=== PATIENT | male | born 1935 | race Caucasian/White ===

== ENCOUNTER 2022-10-30 14:12 | Observation (INO) | payer MEDICARE ==
[~2022-10-30] VITALS: Ht 172.7 cm; Wt 78.3 kg
[2022-10-30 14:27] LABS: BASOPHILS 0.1 % (0-2); EOSINOPHILS 3.8 % (0-6); HEMATOCRIT 31.2 % (35.0-50.0); HEMOGLOBIN 10.4 g/dL (12.0-18.0); LYMPHOCYTES 4.5 % (24-44); MCH 31.2 (27-36); MCHC 33.5 g/dl (30-36); MCV 93.2 fl (81-99); MONOCYTES 7.9 % (0-12); NEUTROPHILS 83.7 % (39-80); PLATELET COUNT 155 K/uL (140-440); RBC 3.34 M/ul (4.3-5.7); RDW 17.5 (10.5-15.0)
[2022-10-30 14:46] LABS: ALBUMIN 3.1 g/dL (3.4-5.0); ALBUMIN/GLOBULIN RATIO 1.03 (1.1-2.4); ANION GAP 14.5 (7-21); BILIRUBIN, TOTAL 0.6 ng/dL (0.2-1.0); BUN/CREATININE RATIO 30.79 (6.0-28.6); CREATININE, SERUM 3.02 mg/dL (0.70-1.30); POTASSIUM 3.5 mmol/L (3.5-5.1); PROTEIN, TOTAL 6.1 g/dL (6.4-8.2)
--- OUTSIDE RECORDS SUMMARY | 2022-10-30 16:01 | XMS ---
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 E.Deny VISIT COUNT (12 MO.) Shaan Montelongo RichelleQuang Vega [facility] 1 CHARAN Mcdonald TOTAL 5 NOTE: Visits indicate total known visits. ED/UCC VISIT TRACKING (12 MO.) 10/30/2022 14:29 [facility] [place] TYPE: Emergency COMPLAINT: - WEAKNESS 10/07/2022 02:32 [facility] TYPE: Emergency 10/06/2022 19:32 [facility] TYPE: Emergency DIAGNOSES: - Unspecified cord compression - neck pain - Neck Problem 10/06/2022 02:27 [facility] TYPE: Emergency DIAGNOSES: - Cervicalgia - Fall on same level, unspecified, initial encounter - Other symptoms and signs involving the musculoskeletal system - Fall - Neck Pain 08/12/2022 14:53 [facility] TYPE: Emergency DIAGNOSES: - Acute cystitis without hematuria - Cerebral infarction, unspecified - Extremity Weakness - Weakness INPATIENT VISIT TRACKING (12 MO.) 10/07/2022 02:32 [facility] TYPE: Neuro Surgery DIAGNOSES: [id number]. Injury, unspecified, initial encounter [id number]. Unspecified injury at unspecified level of cervical spinal cord, initial encounter [id number]. 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 - Cerebral infarction, unspecified - Chronic kidney disease, stage 3 unspecified - Dysarthria and anarthria - Dysphagia, unspecified - Essential (primary) hypertension - Foot drop, right foot - Hemiplegia, unspecified affecting right dominant side - Hypothyroidism, unspecified - detention (current) use of insulin - Other malaise - Other reduced mobility - Other specified health status - Type 2 diabetes mellitus with diabetic polyneuropathy - Unsteadiness on feet - CVA 08/12/2022 14:53 [facility] TYPE: Inpatient DIAGNOSES: - Acute cystitis without hematuria - Cerebral infarction, unspecified [email or web address]
[2022-10-30 17:10] LABS: BILIRUBIN, URINE NEGATIVE (negative); BLOOD/HGB, URINE NEGATIVE (Negative); KETONE, URINE TRACE (Negative); LEUK ESTERASE, URINE NEGATIVE (negative); NITRITE, URINE NEGATIVE (negative)
[2022-10-30 19:05] VITALS: BP 115/44
--- NOTE | 2022-10-30 19:31 | NUR ---
RECEIVED REPORT FROM CLINICAL SUPPORT MANAGER. PATIENT TANSFERRED TO HOSPITAL BED FROM [facility]. ADMISSION COMPLETED BY SHALINI TRIPLETT. PATIENT ORIENTED TO ROOM. PATIENT DENIES ANY NEEDS. CALL LIGHT IN REACH.
--- NOTE | 2022-10-30 20:29 | NUR ---
PATIENTS ADMISSION COMPLETED. MULTANI EMPTIED AND MULTANI CARE COMPLETED. PATIENT ASSISTED TO EAT A SNACK. PATIENTS IV INFUSING PER ORDER. PATIENT DENIES ANY PAIN. PM MEDS PER ORDER. PATIENT ASSESMENT COMPLETED. RIGHT SIDED WEAKNESS FROM RECENT SURGERY. PATIENT HAS REDDENED GROIN AREA. PATIENT HAS ABRASION TO RIGHT HEEL. PATIENT HAS SCATTERED BRUISES AND SCABS. PATIENT DENIES ANY NEEDS. CALL LIGHT IN REACH.K BED ALARM ON FOR SAFETY.
--- NOTE | 2022-10-30 21:01 | NUR ---
CALL LIGHT ANSWERED. IV PUMP ALARMING, DISTAL OCCLUSION. ARM STRAIGHTENED AND PLACED ON PILLOW. IV SITE ASSESSED, IVF INFUSING WNL. pt HAS NO ADDITIONAL REQUESTS. BED ALARM ON.
--- NOTE | 2022-10-30 22:13 | NUR ---
PT STATES HE IS HAVING SOME ACID REFLUX, NIO PLACED FOR MAALOX. INTERACTIONS DISCUSSED WITH TELEPHARMACY.
--- NOTE | 2022-10-30 22:35 | NUR ---
PATIENT REPORTS HEARTBURN, PRN MEDICATION GIVEN PER ORDER. PATIENT ASSISTED TO TAKE MEDICATION AND DRINK WATER. HEEL PROTECTORS PLACED ON PATIENT. PATIENT DENIES ANY PAIN. PATIENT DENIES ANY NEEDS. BP TAKEN AND RECORDED. CALL LIGHT IN REACH.
[2022-10-30 22:39] VITALS: BP 123/56
--- NOTE | 2022-10-31 00:19 | NUR ---
PATIENT IS RESTING IN BED WITH EYES CLOSED, RR 15. CALL LIGHT IN REACH. IV INFUSING PER ORER.
[2022-10-31 02:00] VITALS: BP 132/65
[2022-10-31 05:15] VITALS: BP 130/58
[2022-10-31 05:57] LABS: BASOPHILS 0.2 % (0-2); PLATELET COUNT 142 K/uL (140-440)
[2022-10-31 05:59] LABS: EOSINOPHILS 3.4 % (0-6); HEMOGLOBIN 9.9 g/dL (12.0-18.0); LYMPHOCYTES 5.7 % (24-44); MCH 30.8 (27-36); MCHC 33.2 g/dl (30-36); MCV 92.7 fl (81-99); NEUTROPHILS 80.7 % (39-80); RBC 3.23 M/ul (4.3-5.7)
[2022-10-31 06:02] LABS: ANION GAP 12.7 (7-21); BUN/CREATININE RATIO 38.91 (6.0-28.6); CALCIUM 8.3 mg/dL (8.5-10.1); CREATININE, SERUM 2.03 mg/dL (0.70-1.30); POTASSIUM 3.7 mmol/L (3.5-5.1)
--- NOTE | 2022-10-31 06:02 | NUR ---
PATIENTS VITALS TAKEN AND RECORDED. MULTANI EMPTIED. INTAKE AND OUTPUT RECORDED. PATIENT REPOSTIONED IN BED. IV INFUSING PER ORDER. PATIENT DENIES ANY PAIN OR NEEDS. CALL LIGHT IN REACH.
--- NOTE | 2022-10-31 07:18 | NUR ---
REPORT RECEIVED FROM UZIEL LIRIANO. PT RESTING IN BED WITH EYES CLOSED. RR EVEN AND UNLABORED. PT AWAKENS WHEN UZIEL LIRIANO AND THIS RN ENTER ROOM. PT DENIES ANY NEEDS AT THIS TIME. CALL LIGHT IN REACH.
--- NOTE | 2022-10-31 08:00 | NUR ---
IN PT ROOM. BS TAKEN. PT REQ TO USE BSC. PT UP TO BSC 2 PA W FWW AND GAITBELT. PT TO CALL WHEN DONE. PT DONE. PT CLEANED. PT BACK TO BED. PT REPOS IN BED AND PUT AT A 45 DEGREE ANGLED. PT HAS NO OTHER NEEDS. CALL LIGHT WITHIN REACH
--- NOTE | 2022-10-31 08:33 | NUR ---
IN TO ADMINISTER MEDICATIONS, SEE MAR. PT TAKES PO MEDICATIONS WITH ASSISTANCE WITH NO ISSUES WITH SIPS OF WATER. DR. MONTEMAYOR IN TO ROUND ON PT. PER DR. MONTEMAYOR "TAKE MULTANI OUT." MULTANI CATHETER REMOVED. ASSESSMENT COMPLETE. LUNG SOUNDS CLEAR. BOWEL TONES ACTIVE. PT DENIES TENDERNESS WITH ABD PALPATION. PT DENIES PAIN AT THIS TIME. PT REPORTS NUMBNESS/TINGLING ALL OVER. PER PT "IT IS NORMAL." PT REQUESTING BREAKFAST TO BE CUT UP. ASSISTED PT WITH CUTTING UP MEAL. PT DENIES ANY OTHER NEEDS AT THIS TIME. CALL LIGHT IN REACH.
[2022-10-31 09:05] VITALS: BP 144/49
--- NOTE | 2022-10-31 09:05 | NUR ---
call light answered. pt req assistance w eating. pt assisted. pt tolerated finger foods well. pt pillow removed behind head per pt request. i ask pt if he needs anything and pt stated " why do you keep asking me if i need anything, i am just trying to swallow my food". pt has no needs at this time call light within reach
--- NOTE | 2022-10-31 11:32 | NUR ---
IN WITH SIMON HARDWICK. PT REPORTING TOILETING NEEDS. 2PA WITH FWW AND GAITBELT. C-COLLAR PLACED. PT ASSISTED FROM BED TO BSC. VOID NOTED. PT REQUESTING TO SIT IN RECLINER. 2PA WITH FWW AND GAITBELT FROM BSC TO RECLINER. PILLOWS PLACED BEHIND HEAD. C-COLLAR REMOVED. BLE ELEVATED IN RECLINER. IV INFUSING WNL. PT DENIES ANY OTHER NEEDS FROM THIS RN AT THIS TIME. SIMON HARDWICK STILL IN ROOM. CALL LIGHT IN REACH.
--- NOTE | 2022-10-31 11:52 | NUR ---
IN TO ANSWER CALL LIGHT. IV PUMP ALARMING, RESOLVED. NEW BAG OF FLUIDS STARTED, SEE MAR. PT REQUESTING HEEL PROTECTOR UNDER RIGHT HEEL. HEEL PROTECTOR PLACED. PT DENIES ANY OTHER NEEDS AT THIS TIME. CALL LIGHT IN REACH.
[2022-10-31 13:40] VITALS: BP 135/52
--- NOTE | 2022-10-31 15:00 | NUR ---
PT SITTING UP IN BED WITH EYES CLOSED. DID NOT ROUSE TO MY KNOCK. LEFT GUIDEPOST AND CONTACT CARD. PRAYED SILENTLY.
--- NOTE | 2022-10-31 15:27 | NUR ---
IN TO ADMINISTER MEDICAITON, SEE MAR. PT TAKES PO MEDICAITON WITH SIP OF WATER WITH NO ISSUES. ASSESSMENT COMPLETE. LUNG SOUNDS CLEAR. BOWEL TONES ACTIVE. PT DENIES PAIN AT THIS TIME. PT UP IN RECLINER. PT DENIES ANY NEEDS AT THIS TIME. CALL LIGHT IN REACH.
--- NOTE | 2022-10-31 15:56 | NUR ---
THIS RN AND SIMON HARDWICK IN TO GET PT READY TO LEAVE. PT REPORTING TOILETING NEEDS. 2PA WITH FWW AND GAIT BELT FROM RECLINER TO BSC. IV REMOVED, SEE VASCULAR ACCESS. PT REQUESTING A MINUTE. PT EDUCATED TO USE CALL LIGHT WHEN READY. PT VERBALIZES UNDERSTANDING.
--- NOTE | 2022-10-31 16:05 | NUR ---
IN TO ANSWER CALL LIGHT. SIMON HARDWICK IN TO ASSIST. PT FINISHED WITH BSC. 2PA WITH FWW AND GAIT BELT FROM BSC TO WHEELCHAIR. VOID NOTED. NO OTHER NEEDS FROM THIS RN AT THIS TIME. SIMON HARDWICK STILL IN ROOM.
[2022-10-31 16:08] VITALS: BP 156/58
--- NOTE | 2022-10-31 16:13 | NUR ---
REPORT CALLED TO [facility]. THIS RN TALKED TO UZIEL WHITT AT [facility]. QUESTIONS ANSWERED.
--- NOTE | 2022-10-31 20:59 | EKG ---
[facility] [address] [facility] [place] [address] Signed Normal sinus rhythm Left bundle branch block Abnormal ECG No previous ECGs available Confirmed by Glen Rodgers MD () on 10/31/2022 8:59:33 PM Electronically Signed By: GLEN RODGERS MD 10/31/222058 PATIENT NAME: JASPER LANE Electrocardiogram DATE OF : [birth year] PHYSICIAN: GLEN RODGERS MD REPORT #: [id number] REPORT IS CONFIDENTIAL AND NOT TO BE RELEASED WITHOUT AUTHORIZATION
== END 2022-10-31 16:25 ==
LOC: ED 14:12 → MS 18:31
PROVIDERS: Emergency Medicine; ADMIT Family Medicine; ATTEND Family Medicine
DX: N17.9 Acute kidney failure, unspecified (principal); N18.9 Chronic kidney disease, unspecified; I12.9 Hypertensive chronic kidney disease with stage 1 through stage 4 chronic kidney disease, or unspecified chronic kidney disease; E78.5 Hyperlipidemia, unspecified; E11.22 Type 2 diabetes mellitus with diabetic chronic kidney disease; E03.9 Hypothyroidism, unspecified; I25.10 Atherosclerotic heart disease of native coronary artery without angina pectoris; K21.9 Gastro-esophageal reflux disease without esophagitis; R33.9 Retention of urine, unspecified; Z20.822 Contact with and (suspected) exposure to COVID-19
CPT/HCPCS: 36415; 71045; 80048; 80053; 81003; 84484; 85025; 93005; 93010; A9270; C9803; J7030; J7121; U0002